=== PATIENT | male | born 1960 | race Caucasian/White ===

== ENCOUNTER 2019-11-07 08:24 | Emergency (ER) | payer MEDICAID ==
[~2019-11-07] VITALS: Ht 162.6 cm; Wt 73.5 kg
[2019-11-07 08:36] VITALS: Ht 162.6 cm; Wt 73.5 kg
[2019-11-07 09:03] VITALS: BP 151/94
== END 2019-11-07 09:03 | disposition home or self-care (01) ==
LOC: ED 08:24
DX: S61.011A Laceration without foreign body of right thumb without damage to nail, initial encounter (principal); W31.2XXA Contact with powered woodworking and forming machines, initial encounter; Y93.89 Activity, other specified; Y92.89 Other specified places as the place of occurrence of the external cause; Y99.8 Other external cause status
CPT/HCPCS: 90715

== ENCOUNTER 2020-03-18 21:31 | Emergency (ER) | payer MEDICAID ==
[~2020-03-18] VITALS: Ht 162.6 cm; Wt 73.1 kg
[2020-03-18 21:45] VITALS: Ht 162.6 cm; Wt 73.1 kg
[2020-03-19 00:03] VITALS: BP 149/87
== END 2020-03-19 00:03 | disposition home or self-care (01) ==
LOC: ED 21:31
DX: T78.40XA Allergy, unspecified, initial encounter (principal); I10 Essential (primary) hypertension; X58.XXXA Exposure to other specified factors, initial encounter
CPT/HCPCS: J2930; J7030; J7040; Q0163